=== PATIENT | female | born 1990 | race Caucasian/White ===

== ENCOUNTER 2017-07-07 11:19 | Emergency (ER) | payer SELFPAY ==
[~2017-07-07] VITALS: Ht 167.6 cm; Wt 104.1 kg
[2017-07-07] MEDS ORDERED: BACTROBAN OINTM22 GM TP (12:51)
[2017-07-07] MEDS ORDERED: BACTRIM,SEPT1 TABLET PO (12:51)
[2017-07-07 13:00] VITALS: BP 126/103
== END 2017-07-07 13:01 | disposition home or self-care (01) ==
LOC: EME 11:19
DX: L02.01 Cutaneous abscess of face (principal); L03.211 Cellulitis of face; Z86.14 Personal history of Methicillin resistant Staphylococcus aureus infection; Z88.0 Allergy status to penicillin; F17.200 Nicotine dependence, unspecified, uncomplicated
CPT/HCPCS: 99281; 99283

== ENCOUNTER 2018-04-08 12:15 | Inpatient (IN) | payer OTHER ==
[~2018-04-08] VITALS: Ht 167.6 cm; Wt 91.3 kg
[~2018-04-08 12:15] MED LIST: BACTRIM,SEPT1 TABLET PO; BACTROBAN OINTM22 GM TP
[2018-04-08 13:10] LABS: HEMATOCRIT 47.5 % (36.0-46.0); HEMOGLOBIN 16.7 G/DL (11.9-15.5); MCH 30.1 PG (29.0-34.0); MCHC 35.2 G/DL (30.0-36.0); MCV 85.6 FL (83-99); PLATELET COUNT 298 K/uL (156-360); RBC DIS.WIDTH-CV 12.6 % (11.8-14.6); RBC DIS.WIDTH-SD 39.2 % (39-53); RED BLOOD COUNT 5.55 M/uL (3.80-5.20); WHITE BLOOD COUNT 15.7 K/uL (4.1-10.2)
[2018-04-08 13:10] LABS: APPEARANCE CLOUDY ((CLEAR)); BILIRUBIN NEGATIVE; BLOOD LARGE; COLOR YELLOW ((YELLOW)); GLUCOSE (STRIP) 50; KETONES 5; LEUKOCYTES TRACE; NITRITE NEGATIVE; PROTEIN (STRIP) 100; SPECIFIC GRAVITY 1.014 (1.000-1.030); UROBILINOGEN 0.2 MG/DL (0.2-1.0)
[2018-04-08 13:22] LABS: ALBUMIN 4.9 g/dL (3.2-4.8); CHLORIDE 105 mEq/L (99-109); POTASSIUM 3.9 mEq/L (3.7-5.4); SODIUM 139 mEq/L (136-147)
[2018-04-08 13:24] LABS: GLUCOSE 156 mg/dL (70-99)
[2018-04-08 13:26] LABS: TOTAL BILIRUBIN 0.7 mg/dL (0.0-1.0)
[2018-04-08 13:28] LABS: ALKALINE PHOSPHATASE 108 IU/L (3-129); CREATININE 1.4 mg/dL (0.6-1.3); GFR ESTIMATE (CALCULATED) 47 mL/min/
[2018-04-08 13:28] LABS: BACTERIA 2+ /HPF; EPITHELIAL CELLS 2+ /HPF; HYALINE CASTS 20-30 /LPF; MUCUS 1+ /LPF; UCUL ADDED? YES; WHITE BLOOD CELLS 15-20 /HPF (0-5)
[2018-04-08 13:29] LABS: UREA NITROGEN (BUN) 21 mg/dL (9-23)
[2018-04-08 13:30] LABS: AST (GOT) 37 IU/L (2-34)
[2018-04-08 13:31] LABS: ALT (GPT) 22 IU/L (3-49)
[2018-04-08 13:39] LABS: QUANTITATIVE HCG < 4.0 MIU/ML
[2018-04-08 13:59] LABS: LIPASE 16 U/L (1.0-51.0)
[2018-04-08] MEDS ORDERED: [UNRECOGNIZED DRUG - OTHER] PO (16:39)
[2018-04-08] MEDS ORDERED: ADVIL,NUPRIN,M200 MG PO (16:40)
[2018-04-08] MEDS ORDERED: DIGESTIVE ADVA1 EAC1 PO (16:40)
[2018-04-08 17:06] LABS: BASOPHIL (%) 0.9 % (0-1); BASOPHIL COUNT 0.1 K/uL (0-0.1); EOSINOPHIL (%) 1.3 % (0-5); EOSINOPHIL COUNT 0.2 K/uL (0-0.3); IMMATURE GRANULOCYTE (%) 0.5 % (0.0-0.7); LYMPHOCYTE (%) 15.5 % (15-42); LYMPHOCYTE COUNT 2.4 K/uL (1.0-2.8); MONOCYTE (%) 6.1 % (3-12); MONOCYTE COUNT 0.9 K/uL (0-0.8); NEUTROPHIL (%) 75.7 % (45-76); NEUTROPHIL COUNT 11.5 K/uL (1.8-6.4)
[2018-04-08 21:58] VITALS: BP 128/87
[2018-04-09 00:43] VITALS: BP 121/86
[2018-04-09 06:41] LABS: BASOPHIL (%) 0.5 % (0-1); BASOPHIL COUNT 0.1 K/uL (0-0.1); EOSINOPHIL (%) 1.2 % (0-5); EOSINOPHIL COUNT 0.2 K/uL (0-0.3); HEMOGLOBIN 14.8 G/DL (11.9-15.5); IMMATURE GRANULOCYTE (%) 0.4 % (0.0-0.7); LYMPHOCYTE (%) 15.3 % (15-42); LYMPHOCYTE COUNT 2.3 K/uL (1.0-2.8); MCHC 34.4 G/DL (30.0-36.0); MONOCYTE (%) 7.4 % (3-12); MONOCYTE COUNT 1.1 K/uL (0-0.8); NEUTROPHIL (%) 75.2 % (45-76); NEUTROPHIL COUNT 11.3 K/uL (1.8-6.4); PLATELET COUNT 288 K/uL (156-360); RBC DIS.WIDTH-CV 12.9 % (11.8-14.6); RBC DIS.WIDTH-SD 40.5 % (39-53); RED BLOOD COUNT 4.94 M/uL (3.80-5.20)
[2018-04-09 07:03] LABS: CHLORIDE 104 MEQ/L (99-109); GFR ESTIMATE (CALCULATED) > 59 mL/min/; GLUCOSE 129 mg/dL (70-99); POTASSIUM 4.2 MEQ/L (3.7-5.4); SODIUM 138 MEQ/L (136-147); UREA NITROGEN (BUN) 14 mg/dL (9-23)
[2018-04-09 07:48] VITALS: BP 170/79
[2018-04-09 16:18] VITALS: BP 137/83
[2018-04-09 19:05] VITALS: BP 90/43
[2018-04-09 22:42] VITALS: BP 133/86
[2018-04-10 07:37] VITALS: BP 126/90
[2018-04-10 15:46] VITALS: BP 141/74
[2018-04-10 22:56] VITALS: BP 120/82
[2018-04-11 07:49] VITALS: BP 111/59
[2018-04-11 07:53] LABS: INTER. NORMALIZED RATIO 1.2
[2018-04-11 07:56] LABS: PTT 37.2 SEC (25-37)
[2018-04-11 11:15] VITALS: BP 130/76
[2018-04-11 15:33] VITALS: BP 126/75
[2018-04-12] VITALS: BP 128/60
[2018-04-12 07:11] VITALS: BP 126/65
[2018-04-12 09:06] LABS: HEMATOCRIT 42.9 % (36.0-46.0); HEMOGLOBIN 14.7 G/DL (11.9-15.5); MCH 29.3 PG (29.0-34.0); MCHC 34.3 G/DL (30.0-36.0); MCV 85.6 FL (83-99); PLATELET COUNT 276 K/uL (156-360); RBC DIS.WIDTH-CV 12.6 % (11.8-14.6); RBC DIS.WIDTH-SD 39.5 % (39-53); RED BLOOD COUNT 5.01 M/uL (3.80-5.20)
[2018-04-12 15:44] VITALS: BP 126/75
[2018-04-13 00:53] VITALS: BP 113/55
[2018-04-13 00:54] VITALS: BP 126/80
[2018-04-13 07:16] VITALS: BP 117/61
[2018-04-13 15:18] VITALS: BP 141/84
[2018-04-13 23:12] VITALS: BP 121/68
[2018-04-14 06:41] VITALS: BP 115/66
[2018-04-14] MEDS ORDERED: LORAZEPAM0.5 MG PO (09:02)
[2018-04-14] MEDS ORDERED: TAMSULOSIN HCL0.4 MG PO (09:02)
[2018-04-14] MEDS ORDERED: OXYCONTIN10 MG PO (09:02)
[2018-04-14] MEDS ORDERED: ENDOCET 5-3251 EACH PO (09:02)
[2018-04-14] MEDS ORDERED: FENTANYL1 EAC1 TD (10:03)
== END 2018-04-14 14:15 | disposition home or self-care (01) | DRG 844 ==
LOC: EME 12:15 → 5EAST 16:40 → EDOF 16:40 → ENRESERV 16:43 → CANRESERV 16:43 → ENRESERV 17:38 → 5EAST 19:29
PROVIDERS: Hospitalist; Nurse Practitioner Family; Radiology Diagnostic Radiology
PROC: 0BBC3ZX Excision of Right Upper Lung Lobe, Percutaneous Approach, Diagnostic (ICD-10-PCS; principal; 2018-04-11)
DX: C80.1 Malignant (primary) neoplasm, unspecified (principal); C78.01 Secondary malignant neoplasm of right lung; N17.9 Acute kidney failure, unspecified; E86.0 Dehydration; N83.202 Unspecified ovarian cyst, left side; N83.201 Unspecified ovarian cyst, right side; N39.0 Urinary tract infection, site not specified; R59.1 Generalized enlarged lymph nodes; N92.6 Irregular menstruation, unspecified; B37.3 Candidiasis of vulva and vagina; K64.9 Unspecified hemorrhoids; K59.00 Constipation, unspecified; R01.1 Cardiac murmur, unspecified; R11.2 Nausea with vomiting, unspecified; R63.4 Abnormal weight loss; E66.9 Obesity, unspecified; Z68.32 Body mass index [BMI] 32.0-32.9, adult; F17.290 Nicotine dependence, other tobacco product, uncomplicated
CPT/HCPCS: 71045; 74177; 77012; 80048; 80053; 81003; 83690; 84702; 85025; 85027; 85610; 85730; 86304; 87040; 87086; 88305; 88341 TC; 88342 TC; 93306; 99281; 99285; J0696; J1200; J1644; J1885; J2270; J2405; J3010; J7030